=== PATIENT | female | born 1960 | race American Indian/Alaskan Native ===

== ENCOUNTER 2017-07-18 23:45 | Inpatient (IN) | payer MEDICARE, OTHER ==
[~2017-07-18 23:45] MED LIST: HEPARIN/ 0.45% NACL-25,000 UNIT/500 ML 25,000 UNIT/500 ML BAG IV SCH
[2017-07-18] MEDS ORDERED: PLAVIX PO ONE (23:49)
[2017-07-18] MEDS ORDERED: NACL 0.9% 1000 ML 1,000 ML IV ONE (23:49)
[2017-07-18] MEDS ORDERED: ZOFRAN IV ONE (23:49)
[2017-07-18] MEDS ORDERED: HEPARIN IV ONE (23:49)
[2017-07-18] MEDS ORDERED: INTROPIN DRIP 800 MG/D5W 250 ML 800 MG/250 ML BAG IV ONE (23:50)
--- NOTE | 2017-07-18 23:52 | Emergency Department Report ---
ED Chest Pain HPI - General Stated Complaint: POSS STEMI Source: patient, EMS, old records reviewed (no previous medical record) Limitations: Altered Mental Status - History of Present Illness Initial Comments: 57-year-old female with a past medical history hypertension, breast cancer, and elevated cholesterol presents to the hospital with chest pain that started 20 minutes prior to arrival. EMS transmitted EKG and a field shows ST elevation LA in inferior leads with reciprocal changes laterally the patient also has ST elevation anteriorly as well. Patient is lethargic and able to answer questions intermittently. Was able to tolerate by mouth aspirin in the field. Positive associate shortness of breath reported with no reports of vomiting. - Related Data Allergies Allergy/AdvReac Type Severity Reaction Status Date / Time No Known Allergies Allergy Unverified 07/18/17 23:49 Heart Score - HEART Score History: Highly suspicious EKG: Significant ST-depression Age: 45-65 Risk factors: 1-2 risk factors Troponin: 1-3x normal limit HEART Score: 7 ED Review of Systems ROS: Stated complaint: POSS STEMI Other details as noted in HPI Comment: Unobtainable due to pts medical conditions (Limited due to lethargy. As per HPI) ED Physical Exam - Other Other exam information: General: Positive distress/lethargy Head exam: Atraumatic, normocephalic Eyes exam: Normal appearance ENT: Moist mucous membrane, normal oropharynx Neck exam: Normal inspection, full range of motion Respiratory exam: Clear to auscultation bilateral, no wheezes, rales, crackles Cardiovascular: Bradycardic regular rhythm Abdomen: Soft, nondistended, and nontender, with normal bowel sounds, no rebound, or guarding Extremity: Full range of motion normal inspection no deformity Back: Normal Inspection, full range of motion, no tenderness Neurologic: Patient is drowsy/lethargic but oriented 3 and able to answer questions intermittently and follow commands. Moves all extremities without focality Psychiatric: normal affect, normal mood Skin: Warm, dry, intact ED Course Vital Signs 07/18/17 07/19/17 07/19/17 23:52 02:00 03:00 Temperature 97.7 F 97.5 F L Pulse Rate 45 L 73 Pulse Rate [ 71 From Monitor] Pulse Rate [ 73 Right Radial] Respiratory 15 Rate Respiratory 19 Rate [Chest] Blood Pressure 93/54 114/71 O2 Sat by Pulse 99 Oximetry 07/19/17 07/19/17 07/19/17 05:14 05:18 05:44 Temperature Pulse Rate 73 Pulse Rate [ From Monitor] Pulse Rate [ Right Radial] Respiratory 19 15 Rate Respiratory Rate [Chest] Blood Pressure 114/75 O2 Sat by Pulse Oximetry 07/19/17 07/19/17 07/19/17 08:00 10:00 12:00 Temperature 97.7 F 98.0 F Pulse Rate 64 Pulse Rate [ From Monitor] Pulse Rate [ Right Radial] Respiratory Rate Respiratory Rate [Chest] Blood Pressure O2 Sat by Pulse 100 98 Oximetry 07/19/17 15:53 Temperature 98.3 F Pulse Rate Pulse Rate [ From Monitor] Pulse Rate [ Right Radial] Respiratory Rate Respiratory Rate [Chest] Blood Pressure O2 Sat by Pulse Oximetry - Reevaluation(s) Reevaluation #1: 07/18/17 23:51 Dopamine initiated after patient arrival. Plavix, heparin bolus with drip also ordered - Consultations Consultation #1: 07/18/17 23:30 Case discussed with cross tie turner prior to patient arrival to the ED. Dental Claims Processor activated. EKG transmitted to Dr. Llamas. In route to hospital to catheterize patient KYE score - Kye Score Age > 65: (0) No Aspirin use within the Past 7 Days: (0) No 3 or more CAD Risk Factors: (0) No 2 or more Angina events in past 24 hrs: (0) No Known CAD with more than 50% Stenosis: (0) No Elevated Cardiac Markers: (1) Yes ST Deviation Greater than 0.5mm: (1) Yes KYE Score: 2 ED Medical Decision Making - Lab Data Result diagrams: 07/19/17 00:40 07/19/17 05:02 Lab Results 07/19/17 07/19/17 07/19/17 Range/Units 00:40 00:40 00:40 WBC 30.2 H (4.5-11.0) K/mm3 RBC 5.27 H (3.65-5.03) M/mm3 Hgb 11.3 (10.1-14.3) gm/dl Hct 36.1 (30.3-42.9) % MCV 69 L (79-97) fl MCH 22 L (28-32) pg MCHC 31 (30-34) % RDW 16.2 H (13.2-15.2) % Plt Count 254 (140-440) K/mm3 Lymph # Pocket Maker Add Manual Diff Complete Total Counted 200 Seg Neuts % (Manual) 85.5 H (40.0-70.0) % Band Neutrophils % 1.0 % Lymphocytes % (Manual) 9.0 L (13.4-35.0) % Reactive Lymphs % (Man) 0.5 % Monocytes % (Manual) 1.0 (0.0-7.3) % Eosinophils % (Manual) 2.5 (0.0-4.3) % Basophils % (Manual) 0.5 (0.0-1.8) % Metamyelocytes % 0 % Myelocytes % 0 % Promyelocytes % 0 % Blast Cells % 0 % Nucleated RBC % Not Reportable Seg Neutrophils # Man 25.8 H (1.8-7.7) K/mm3 Band Neutrophils # 0.3 K/mm3 Lymphocytes # (Manual) 2.7 (1.2-5.4) K/mm3 Abs React Lymphs (Man) 0.2 K/mm3 Monocytes # (Manual) 0.3 (0.0-0.8) K/mm3 Eosinophils # (Manual) 0.8 H (0.0-0.4) K/mm3 Basophils # (Manual) 0.2 H (0.0-0.1) K/mm3 Metamyelocytes # 0.0 K/mm3 Myelocytes # 0.0 K/mm3 Promyelocytes # 0.0 K/mm3 Blast Cells # 0.0 K/mm3 WBC Morphology Not Reportable Hypersegmented Neuts Not Reportable Hyposegmented Neuts Not Reportable Hypogranular Neuts Not Reportable Smudge Cells Not Reportable Toxic Granulation Not Reportable Toxic Vacuolation Not Reportable Dohle Bodies Not Reportable Pelger-Huet Anomaly Not Reportable Addi Rods Not Reportable Platelet Estimate Appears normal Clumped Platelets Not Reportable Plt Clumps, EDTA Not Reportable Large Platelets Not Reportable Giant Platelets Not Reportable Platelet Satelliting Not Reportable Plt Morphology Comment Not Reportable RBC Morphology Not Reportable Dimorphic RBCs Not Reportable Polychromasia Not Reportable Hypochromasia Not Reportable Poikilocytosis Not Reportable Anisocytosis Not Reportable Microcytosis Not Reportable Macrocytosis Not Reportable Spherocytes Not Reportable Pappenheimer Bodies Not Reportable Sickle Cells Not Reportable Target Cells Not Reportable Tear Drop Cells Not Reportable Ovalocytes Not Reportable Helmet Cells Not Reportable Hutchinson-Dupont Bodies Not Reportable [place] Rings Not Reportable [place] Cells 2+ Bite Cells Not Reportable Crenated Cell Not Reportable Elliptocytes Few Acanthocytes (Spur) Not Reportable Rouleaux Not Reportable Hemoglobin C Crystals Not Reportable Schistocytes Not Reportable Malaria parasites Not Reportable Deo Bodies Not Reportable Hem Pathologist Commnt No PT 17.3 H (12.2-14.9) Sec. INR 1.34 H (0.87-1.13) APTT > 240.0 H* (24.2-36.6) Sec. Sodium (137-145) mmol/L Potassium (3.6-5.0) mmol/L Chloride (98-107) mmol/L Carbon Dioxide (22-30) mmol/L Anion Gap mmol/L BUN (7-17) mg/dL Creatinine (0.7-1.2) mg/dL Estimated GFR ml/min BUN/Creatinine Ratio % Glucose (65-100) mg/dL POC Glucose (70-105) Calcium (8.4-10.2) mg/dL Total Creatine Kinase 133 (30-135) units/L CK-MB (CK-2) 9.5 H (0.0-4.0) ng/mL CK-MB (CK-2) Rel Index 7.1 H (0-4) Troponin T 0.045 H (0.00-0.029) ng/mL Triglycerides 125 (2-149) mg/dL Cholesterol 235 H (50-199) mg/dL LDL Cholesterol Direct 176 H (50-130) mg/dL HDL Cholesterol 34 L (40-59) mg/dL Cholesterol/HDL Ratio 6.91 % Blood Type Antibody Screen 07/19/17 07/19/17 07/19/17 Range/Units 00:40 02:45 04:57 WBC (4.5-11.0) K/mm3 RBC (3.65-5.03) M/mm3 Hgb (10.1-14.3) gm/dl Hct (30.3-42.9) % MCV (79-97) fl MCH (28-32) pg MCHC (30-34) % RDW (13.2-15.2) % Plt Count (140-440) K/mm3 Lymph # Add Manual Diff Total Counted Seg Neuts % (Manual) (40.0-70.0) % Band Neutrophils % % Lymphocytes % (Manual) (13.4-35.0) % Reactive Lymphs % (Man) % Monocytes % (Manual) (0.0-7.3) % Eosinophils % (Manual) (0.0-4.3) % Basophils % (Manual) (0.0-1.8) % Metamyelocytes % % Myelocytes % % Promyelocytes % % Blast Cells % % Nucleated RBC % Seg Neutrophils # Man (1.8-7.7) K/mm3 Band Neutrophils # K/mm3 Lymphocytes # (Manual) (1.2-5.4) K/mm3 Abs React Lymphs (Man) K/mm3 Monocytes # (Manual) (0.0-0.8) K/mm3 Eosinophils # (Manual) (0.0-0.4) K/mm3 Basophils # (Manual) (0.0-0.1) K/mm3 Metamyelocytes # K/mm3 Myelocytes # K/mm3 Promyelocytes # K/mm3 Blast Cells # K/mm3 WBC Morphology Hypersegmented Neuts Hyposegmented Neuts Hypogranular Neuts Smudge Cells Toxic Granulation Toxic Vacuolation Dohle Bodies Pelger-Huet Anomaly Addi Rods Platelet Estimate Clumped Platelets Plt Clumps, EDTA Large Platelets Giant Platelets Platelet Satelliting Plt Morphology Comment RBC Morphology Dimorphic RBCs Polychromasia Hypochromasia Poikilocytosis Anisocytosis Microcytosis Macrocytosis Spherocytes Pappenheimer Bodies Sickle Cells Target Cells Tear Drop Cells Ovalocytes Helmet Cells Hutchinson-Dupont Bodies [place] Rings [place] Cells Bite Cells Crenated Cell Elliptocytes Acanthocytes (Spur) Rouleaux Hemoglobin C Crystals Schistocytes Malaria parasites Deo Bodies Hem Pathologist Commnt PT (12.2-14.9) Sec. INR (0.87-1.13) APTT (24.2-36.6) Sec. Sodium (137-145) mmol/L Potassium (3.6-5.0) mmol/L Chloride (98-107) mmol/L Carbon Dioxide (22-30) mmol/L Anion Gap mmol/L BUN (7-17) mg/dL Creatinine (0.7-1.2) mg/dL Estimated GFR ml/min BUN/Creatinine Ratio % Glucose (65-100) mg/dL POC Glucose 115 H (70-105) Calcium (8.4-10.2) mg/dL Total Creatine Kinase 741 H (30-135) units/L CK-MB (CK-2) 73.0 H (0.0-4.0) ng/mL CK-MB (CK-2) Rel Index 9.8 H (0-4) Troponin T 0.854 H* D (0.00-0.029) ng/mL Triglycerides (2-149) mg/dL Cholesterol (50-199) mg/dL LDL Cholesterol Direct (50-130) mg/dL HDL Cholesterol (40-59) mg/dL Cholesterol/HDL Ratio % Blood Type O POSITIVE Antibody Screen Negative 07/19/17 Range/Units 05:02 WBC (4.5-11.0) K/mm3 RBC (3.65-5.03) M/mm3 Hgb (10.1-14.3) gm/dl Hct (30.3-42.9) % MCV (79-97) fl MCH (28-32) pg MCHC (30-34) % RDW (13.2-15.2) % Plt Count (140-440) K/mm3 Lymph # Add Manual Diff Total Counted Seg Neuts % (Manual) (40.0-70.0) % Band Neutrophils % % Lymphocytes % (Manual) (13.4-35.0) % Reactive Lymphs % (Man) % Monocytes % (Manual) (0.0-7.3) % Eosinophils % (Manual) (0.0-4.3) % Basophils % (Manual) (0.0-1.8) % Metamyelocytes % % Myelocytes % % Promyelocytes % % Blast Cells % % Nucleated RBC % Seg Neutrophils # Man (1.8-7.7) K/mm3 Band Neutrophils # K/mm3 Lymphocytes # (Manual) (1.2-5.4) K/mm3 Abs React Lymphs (Man) K/mm3 Monocytes # (Manual) (0.0-0.8) K/mm3 Eosinophils # (Manual) (0.0-0.4) K/mm3 Basophils # (Manual) (0.0-0.1) K/mm3 Metamyelocytes # K/mm3 Myelocytes # K/mm3 Promyelocytes # K/mm3 Blast Cells # K/mm3 WBC Morphology Hypersegmented Neuts Hyposegmented Neuts Hypogranular Neuts Smudge Cells Toxic Granulation Toxic Vacuolation Dohle Bodies Pelger-Huet Anomaly Addi Rods Platelet Estimate Clumped Platelets Plt Clumps, EDTA Large Platelets Giant Platelets Platelet Satelliting Plt Morphology Comment RBC Morphology Dimorphic RBCs Polychromasia Hypochromasia Poikilocytosis Anisocytosis Microcytosis Macrocytosis Spherocytes Pappenheimer Bodies Sickle Cells Target Cells Tear Drop Cells Ovalocytes Helmet Cells Hutchinson-Dupont Bodies [place] Rings [place] Cells Bite Cells Crenated Cell Elliptocytes Acanthocytes (Spur) Rouleaux Hemoglobin C Crystals Schistocytes Malaria parasites Deo Bodies Hem Pathologist Commnt PT (12.2-14.9) Sec. INR (0.87-1.13) APTT (24.2-36.6) Sec. Sodium 143 (137-145) mmol/L Potassium 3.6 (3.6-5.0) mmol/L Chloride 104.5 (98-107) mmol/L Carbon Dioxide 19 L (22-30) mmol/L Anion Gap 23 mmol/L BUN 14 (7-17) mg/dL Creatinine 0.8 (0.7-1.2) mg/dL Estimated GFR > 60 ml/min BUN/Creatinine Ratio 18 % Glucose 97 (65-100) mg/dL POC Glucose (70-105) Calcium 8.9 (8.4-10.2) mg/dL Total Creatine Kinase (30-135) units/L CK-MB (CK-2) (0.0-4.0) ng/mL CK-MB (CK-2) Rel Index (0-4) Troponin T (0.00-0.029) ng/mL Triglycerides (2-149) mg/dL Cholesterol (50-199) mg/dL LDL Cholesterol Direct (50-130) mg/dL HDL Cholesterol (40-59) mg/dL Cholesterol/HDL Ratio % Blood Type Antibody Screen - EKG Data -: EKG Interpreted by Me EKG shows normal: sinus rhythm, axis (94), QRS complexes (102), ST-T waves (ST elevation inferior and anterior leads) - EKG Data When compared to previous EKG there are: previous EKG unavailable - Medical Decision Making EKG serum prior to arrival and upon arrival shows extensive anterior inferior infarct. Cardiology has been notified and calcified activated. - Differential Diagnosis LA, unstable angina, PE, atypical chest pain, dissection. Critical Care Time: No Critical care attestation.: If time is entered above; I have spent that time in minutes in the direct care of this critically ill patient, excluding procedure time. 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
[2017-07-18] MEDS ORDERED: HEPARIN/NS 5000 UNIT/500ML(CATH LAB) 1,500 ML IR ONE (23:54)
[2017-07-18] MEDS ORDERED: NACL 0.9% 1000 ML 1,000 ML ONE (23:55)
[2017-07-18] MEDS ORDERED: ATROPINE 0.1% (CARDIAC) ONE (23:55)
[2017-07-18] MEDS ORDERED: XYLOCAINE 2% INFILTRATI ONE (23:55)
[2017-07-18] MEDS ORDERED: HEPARIN 10,000 UNITS/10 ML ONE (23:55)
[2017-07-19] MEDS ORDERED: NACL 0.9% 500 ML 0 ML ONE (00:08)
[2017-07-19] MEDS ORDERED: SUBLIMAZE ONE (00:08)
[2017-07-19] MEDS ORDERED: VERSED ONE (00:08)
[2017-07-19] MEDS ORDERED: XYLOCAINE 2% INFILTRATI ONE (00:17)
[2017-07-19] MEDS ORDERED: ZOFRAN ONE ×2 (00:23→01:00)
[2017-07-19] MEDS ORDERED: AGGRASTAT DRIP (12.5 MG/250 ML) 12,500 MCG/250 ML BAG IV ONE (00:31)
[2017-07-19 00:59] LABS: Hematocrit 36.1 % (30.3-42.9); Hemoglobin 11.3 gm/dl (10.1-14.3); Mean Corpuscular HGB Conc 31 % (30-34); Platelet Count 254 K/mm3 (140-440); Red Blood Count 5.27 M/mm3 (3.65-5.03); Red Cell Distribution Width 16.2 % (13.2-15.2)
[2017-07-19 01:00] LABS: Mean Corpuscular Hemoglobin 22 pg (28-32); Mean Corpuscular Volume 69 fl (79-97)
[2017-07-19] MEDS ORDERED: HEPARIN 10,000 UNITS/10 ML IV ONE (01:00)
[2017-07-19] MEDS ORDERED: HEPARIN 10,000 UNITS/10 ML ONE (01:00)
[2017-07-19] MEDS ORDERED: LEVOPHED DRIP 4 MG/NS 250 ML 4 MG/250 ML BAG IV ONE (01:00)
[2017-07-19] MEDS ORDERED: ASPIRIN ONE (01:06)
[2017-07-19] MEDS ORDERED: PLAVIX ONE (01:06)
[2017-07-19] MEDS ORDERED: ALUM-MAG HYDROX-SIMETH 200-200-20MG/5ML ONE (01:06)
[2017-07-19 01:12] LABS: INR 1.34 (0.87-1.13)
[2017-07-19 01:21] LABS: Creatine Kinase MB 9.5 ng/mL (0.0-4.0)
--- NOTE | 2017-07-19 01:23 | History and Physical Report ---
CHIEF COMPLAINT: Chest pain. HISTORY OF PRESENT ILLNESS: The patient is a pleasant 57-year-old female with complaining of chest pain 04/29. She phoned EMS, brought her to the Emergency Room hypotensive, bradycardic, heart rate of 30. She appears ashen, unable to give a complete history due to significant distress. Unable to obtain social history, family history, medication history; she does not remember. She only remembers that she has high blood pressure. Does not remember primary care physician. ALLERGIES: No known drug, food, or environmental allergies. PHYSICAL EXAMINATION: VITAL SIGNS: Blood pressure in EMS is 60/40. Upon arrival to the hospital, it is 85/70. Heart rate is 30, complete heart block. HEENT: Sclerae are anicteric. PERRLA. NECK: Supple. No mass or JVD. CHEST: Clear to auscultation bilaterally. CARDIOVASCULAR: Chase S1, S2. ABDOMEN: Soft, nontender, nondistended. Normoactive bowel sounds in 4 quadrants. EXTREMITIES: No cyanosis, clubbing, edema. Good peripheral pulses. SKIN: Warm, dry and intact. No rashes. DATA: EKG reveals complete heart block, heart rate of 30. Inferior ST elevation. ASSESSMENT: In summary, the patient is a 57-year-old female: Inferior ST elevation myocardial infarction complicated by hypotension, likely RV infarct and complete heart block with a heart rate of 30. STEMI protocol initiated, IV heparin, fluids and aspirin given. Further plans contingent on catheterization results. JOB# [id number] SBM/NTS
[2017-07-19 01:30] LABS: Partial Thromboplastin Time > 240.0 Sec. (24.2-36.6)
[2017-07-19 01:37] LABS: Band Neutrophils # (Manual) 0.3 K/mm3; Basophils % (Manual) 0.5 % (0.0-1.8); Eosinophils % (Manual) 2.5 % (0.0-4.3); Total Cells Counted 200
[2017-07-19 01:38] LABS: Burr Cells 2+
[2017-07-19] MEDS ORDERED: NACL 0.9% 1000 ML 1,000 ML IV SCH (02:00)
[2017-07-19 02:19] LABS: Chol/HDL Ratio 6.91 %
[2017-07-19] MEDS ORDERED: ATROPINE 0.1% (CARDIAC) ONE (03:44)
[2017-07-19] MEDS ORDERED: MORPHINE IV PRN (04:46)
[2017-07-19] MEDS ORDERED: NITROSTAT SL PRN (04:48)
[2017-07-19] MEDS: ZOFRAN IV PRN (05:18)
[2017-07-19 06:12] LABS: BUN/Creatinine Ratio 18; Blood Urea Nitrogen 14 mg/dL (7-17); Calcium 8.9 mg/dL (8.4-10.2); Hemolysis Index 6
[2017-07-19] MEDS: ECOTRIN PO SCH (10:49)
--- NOTE | 2017-07-19 16:01 | Progress Note ---
Assessment and Plan This 57-year-old female came to the emergency room with severe anterior chest discomfort. Patient is known to have a hypertension and hyperlipidemia. Patient was diagnosed to have acute extensive inferior myocardial infarction. Patient had acute intervention and had a PTCA. A temporary pacemaker was also inserted during the night. This morning she feels much bettersignificant chest pain difficulty breathing or palpitations. Occasional pleuritic chest discomfort is noted. Her temporary pacemaker wire is removed currently she is in sinus rhythm today's EKG shows significant improvement. Increase her oral intake as well as activities gradually monitor, monitor and follow closely. Overall patient seems to have responded to treatment so far quite well. - Patient Problems (1) STEMI (ST elevation myocardial infarction) Current Visit: Yes Status: Acute (2) Hypertension Current Visit: Yes Status: Acute (3) Hyperlipidemia Current Visit: Yes Status: Acute Subjective Date of service: 07/19/17 Interval history: Patient was admitted during the night with acute inferior MO and had PTCA done. Patient is doing well this morning she is also has some pleuritic chest discomfort but no significant pain to suggest angina. Objective Vital Signs Temp Pulse Pulse Pulse Resp Resp BP 07/19/17 15:53 98.3 F 07/19/17 12:00 98.0 F 07/19/17 10:00 64 07/19/17 08:00 97.7 F 07/19/17 05:44 15 07/19/17 05:18 73 114/75 07/19/17 05:14 19 07/19/17 03:00 97.5 F L 07/19/17 02:00 97.7 F 73 71 73 15 19 114/71 07/18/17 23:52 45 L 93/54 Pulse Ox 07/19/17 15:53 07/19/17 12:00 98 07/19/17 10:00 07/19/17 08:00 100 07/19/17 05:44 07/19/17 05:18 07/19/17 05:14 07/19/17 03:00 07/19/17 02:00 99 07/18/17 23:52 - Physical Examination General: Appears Well HEENT: Positive: PERRL Neck: Positive: neck supple Cardiac: Positive: Reg Rate and Rhythm Lungs: Positive: clear to auscultation Abdomen: Positive: Soft Skin: Positive: Clear Extremities: Present: normal - Labs and Meds Cardiac Enzymes 07/19/17 07/19/17 Range/Units 00:40 04:57 CK-MB (CK-2) 9.5 H 73.0 H (0.0-4.0) ng/mL Coagulation 07/19/17 Range/Units 00:40 PT 17.3 H (12.2-14.9) Sec. INR 1.34 H (0.87-1.13) APTT > 240.0 H* (24.2-36.6) Sec. Lipids 07/19/17 Range/Units 00:40 Triglycerides 125 (2-149) mg/dL Cholesterol 235 H (50-199) mg/dL HDL Cholesterol 34 L (40-59) mg/dL Cholesterol/HDL Ratio 6.91 % CBC 07/19/17 Range/Units 00:40 WBC 30.2 H (4.5-11.0) K/mm3 RBC 5.27 H (3.65-5.03) M/mm3 Hgb 11.3 (10.1-14.3) gm/dl Hct 36.1 (30.3-42.9) % Plt Count 254 (140-440) K/mm3 Lymph # Seed Cleaning Manager Comprehensive Metabolic Panel 07/19/17 Range/Units 05:02 Sodium 143 (137-145) mmol/L Potassium 3.6 (3.6-5.0) mmol/L Chloride 104.5 (98-107) mmol/L Carbon Dioxide 19 L (22-30) mmol/L BUN 14 (7-17) mg/dL Creatinine 0.8 (0.7-1.2) mg/dL Glucose 97 (65-100) mg/dL Calcium 8.9 (8.4-10.2) mg/dL
[2017-07-20 05:53] LABS: Hematocrit 35.4 % (30.3-42.9); Hemoglobin 11.4 gm/dl (10.1-14.3); Mean Corpuscular HGB Conc 32 % (30-34); Platelet Count 237 K/mm3 (140-440); Red Blood Count 5.17 M/mm3 (3.65-5.03); Red Cell Distribution Width 16.1 % (13.2-15.2)
[2017-07-20 06:08] LABS: BUN/Creatinine Ratio 11; Blood Urea Nitrogen 9 mg/dL (7-17); Calcium 8.7 mg/dL (8.4-10.2); Hemolysis Index 1
[2017-07-20 06:14] LABS: Mean Corpuscular Hemoglobin 22 pg (28-32); Mean Corpuscular Volume 69 fl (79-97)
[2017-07-20 07:13] LABS: Anisocytosis 1+; Band Neutrophils # (Manual) 0.8 K/mm3; Basophils % (Manual) 0 % (0.0-1.8); Burr Cells 1+; Hypochromasia 1+; Total Cells Counted 100
[2017-07-20 07:14] LABS: Ovalocytes Few
[2017-07-20] MEDS: PLAVIX PO SCH (09:25)
[2017-07-20] MEDS: ECOTRIN PO SCH (09:25)
--- NOTE | 2017-07-20 09:38 | XRay Report ---
Single view chest: History: Post PCI. Findings: Normal cardiomediastinal silhouette. Trachea is midline. No consolidation, pneumothorax or pleural effusion. Impression: No acute cardiopulmonary findings
--- NOTE | 2017-07-20 10:18 | Progress Note ---
Assessment and Plan This 57-year-old female came to the emergency room with severe anterior chest discomfort. Patient is known to have a hypertension and hyperlipidemia. Patient was diagnosed to have acute extensive inferior myocardial infarction. Patient had acute intervention and had a PTCA. A temporary pacemaker was also inserted. Pacemaker was removed yesterday. This morning she feels much better . Cardiac examination is stable rhythm is stable. Plan is to transfer to telemetry - Patient Problems (1) STEMI (ST elevation myocardial infarction) Current Visit: Yes Status: Acute (2) Hypertension Current Visit: Yes Status: Acute (3) Hyperlipidemia Current Visit: Yes Status: Acute Subjective Date of service: 07/20/17 Interval history: Patient was admitted with acute inferior [place] and had PTCA done. Patient is doing well this morning Objective Vital Signs Temp Pulse Pulse Resp BP Pulse Ox 07/20/17 09:51 63 21 110/69 95 07/20/17 09:41 67 22 110/69 94 07/20/17 09:31 74 21 110/69 95 07/20/17 09:20 84 21 110/69 96 07/20/17 09:11 122 H 27 H 127/88 07/20/17 09:01 78 14 127/88 07/20/17 08:51 120 H 21 127/88 07/20/17 08:41 98 H 21 127/88 95 07/20/17 08:31 64 18 107/68 96 07/20/17 08:21 62 14 107/68 96 07/20/17 08:17 98.5 F 69 21 127/88 97 07/20/17 08:11 65 18 107/68 95 07/20/17 08:03 64 18 95 07/20/17 07:50 81 18 107/68 97 07/20/17 07:40 61 20 107/68 95 07/20/17 07:30 76 15 116/65 98 07/20/17 07:23 61 21 116/65 97 07/20/17 07:00 59 L 20 116/65 97 07/20/17 05:33 75 07/20/17 04:00 98.7 F 07/20/17 02:52 98.2 F 60 18 114/70 07/20/17 00:00 98.2 F 07/19/17 18:00 74 18 115/67 100 07/19/17 17:00 80 20 106/67 98 07/19/17 16:00 66 19 124/58 98 07/19/17 15:53 98.3 F 07/19/17 15:00 93 H 18 115/50 96 07/19/17 14:00 70 17 106/55 96 07/19/17 13:00 82 19 104/62 96 07/19/17 12:00 98.0 F 66 14 114/74 98 07/19/17 11:00 82 17 108/60 98 - Physical Examination General: Appears Well HEENT: Positive: PERRL Neck: Positive: neck supple Cardiac: Positive: Reg Rate and Rhythm Lungs: Positive: clear to auscultation Abdomen: Positive: Soft Skin: Positive: Clear Extremities: Present: normal - Labs and Meds Cardiac Enzymes 07/20/17 Range/Units 05:37 CK-MB (CK-2) 25.0 H (0.0-4.0) ng/mL CBC 07/20/17 Range/Units 05:37 WBC 15.0 H (4.5-11.0) K/mm3 RBC 5.17 H (3.65-5.03) M/mm3 Hgb 11.4 (10.1-14.3) gm/dl Hct 35.4 (30.3-42.9) % Plt Count 237 (140-440) K/mm3 Lymph # Clay Artist Comprehensive Metabolic Panel 07/20/17 Range/Units 05:37 Sodium 139 (137-145) mmol/L Potassium 3.1 L (3.6-5.0) mmol/L Chloride 102.8 (98-107) mmol/L Carbon Dioxide 23 (22-30) mmol/L BUN 9 (7-17) mg/dL Creatinine 0.8 (0.7-1.2) mg/dL Glucose 106 H (65-100) mg/dL Calcium 8.7 (8.4-10.2) mg/dL
[2017-07-20] MEDS ORDERED: NS/KCL 20MEQ 20 MEQ/1,000 ML BAG IV SCH (11:00)
[2017-07-20] MEDS: K-DUR PO SCH ×2 (12:36→22:59)
--- NOTE | 2017-07-20 14:42 | Consultation ---
History of Present Illness Consult date: 07/20/17 Requesting physician: ARUN BERNAL Reason for consult: other (STEMI) History of present illness: PULMONARY/CCM CONSULT NOTE (Full dictation # [id number]) Please see dictated notes for full details Medications and Allergies Allergies Allergy/AdvReac Type Severity Reaction Status Date / Time No Known Allergies Allergy Unverified 07/18/17 23:49 Active Meds: Active Medications Aspirin (Ecotrin) 325 mg PO QDAY DANNY Last Admin: 07/20/17 09:25 Dose: 325 mg Atorvastatin Calcium (Lipitor) 80 mg PO QHS DANNY Last Admin: 07/19/17 22:29 Dose: 80 mg Clopidogrel Bisulfate (Plavix) 75 mg PO QDAY DANNY Last Admin: 07/20/17 09:25 Dose: 75 mg Sodium Chloride (Nacl 0.9% 1000 Ml) 1,000 mls @ 125 mls/hr IV DIRECT DANNY Last Infusion: 07/19/17 13:48 Dose: Infused Potassium Chloride/Sodium Chloride (Ns/Kcl 20meq) 20 meq in 1,000 mls @ 42 mls/ hr IV DIRECT DANNY Morphine Sulfate (Morphine) 2 mg IV Q4H PRN PRN Reason: Pain, Moderate (4-6) Last Admin: 07/19/17 05:14 Dose: 2 mg Nitroglycerin (Nitrostat) 0.4 mg SL .Q5MIN PRN PRN Reason: Chest Pain Last Admin: 07/19/17 05:18 Dose: 0.4 mg Ondansetron HCl (Zofran) 4 mg IV Q4H PRN PRN Reason: Nausea And Vomiting Last Admin: 07/19/17 05:18 Dose: 4 mg Potassium Chloride (K-Dur) 20 meq PO BID DANNY Physical Examination Vital signs: Vital Signs Pulse BP 45 L 93/54 07/18/17 23:52 07/18/17 23:52 Results - Laboratory Findings CBC and BMP: 07/20/17 05:37 07/20/17 05:37 PT/INR, D-dimer PT 17.3 Sec. (12.2-14.9) H 07/19/17 00:40 INR 1.34 (0.87-1.13) H 07/19/17 00:40 Abnormal lab findings: Abnormal Labs 07/19/17 07/19/17 07/19/17 00:40 00:40 00:40 WBC 30.2 H RBC 5.27 H MCV 69 L MCH 22 L RDW 16.2 H Seg Neuts % (Manual) 85.5 H Lymphocytes % (Manual) 9.0 L Eosinophils % (Manual) Seg Neutrophils # Man 25.8 H Monocytes # (Manual) Eosinophils # (Manual) 0.8 H Basophils # (Manual) 0.2 H PT 17.3 H INR 1.34 H APTT > 240.0 H* Potassium Carbon Dioxide Glucose POC Glucose Total Creatine Kinase CK-MB (CK-2) 9.5 H CK-MB (CK-2) Rel Index 7.1 H Troponin T 0.045 H Cholesterol 235 H LDL Cholesterol Direct 176 H HDL Cholesterol 34 L 07/19/17 07/19/17 07/19/17 02:45 04:57 05:02 WBC RBC MCV MCH RDW Seg Neuts % (Manual) Lymphocytes % (Manual) Eosinophils % (Manual) Seg Neutrophils # Man Monocytes # (Manual) Eosinophils # (Manual) Basophils # (Manual) PT INR APTT Potassium Carbon Dioxide 19 L Glucose POC Glucose 115 H Total Creatine Kinase 741 H CK-MB (CK-2) 73.0 H CK-MB (CK-2) Rel Index 9.8 H Troponin T 0.854 H* D Cholesterol LDL Cholesterol Direct HDL Cholesterol 07/20/17 07/20/17 07/20/17 05:37 05:37 05:37 WBC 15.0 H RBC 5.17 H MCV 69 L MCH 22 L RDW 16.1 H Seg Neuts % (Manual) Lymphocytes % (Manual) Eosinophils % (Manual) 9.0 H Seg Neutrophils # Man 8.0 H Monocytes # (Manual) 1.1 H Eosinophils # (Manual) 1.4 H Basophils # (Manual) PT INR APTT Potassium 3.1 L Carbon Dioxide Glucose 106 H POC Glucose Total Creatine Kinase 844 H CK-MB (CK-2) 25.0 H CK-MB (CK-2) Rel Index Troponin T 0.755 H* Cholesterol LDL Cholesterol Direct HDL Cholesterol
--- NOTE | 2017-07-20 15:32 | XRay Report ---
FINAL REPORT EXAM: XR CHEST 1V AP HISTORY: ? surgical clips in lower lung jimenez; S/P STEMI TECHNIQUE: Frontal chest x-ray Comparison: None FINDINGS: AP portable semi erect chest x-ray demonstrates normal heart size. There are surgical clips in the bilateral lower shel[place] thoraces, projecting over the lungs. No lateral film was obtained to assess the location. These clips project toward the mediastinum and elisha on the frontal view. Lungs are mildly hyperlucent. There are no focal infiltrates. The bones are osteopenic. IMPRESSION: Single view. Surgical clips project over the lower bilateral hemithoraces extending toward the in mediastinum and bilateral elisha. Mildly hyperlucent lungs suggesting underlying emphysema. No acute infiltrates or evidence for heart failure.
[2017-07-20] MEDS: LOVENOX SUB-Q SCH (22:59)
[2017-07-21] MEDS: ECOTRIN PO SCH (09:41)
[2017-07-21] MEDS: PEPCID PO SCH (09:41)
[2017-07-21] MEDS: PLAVIX PO SCH (09:42)
[2017-07-21] MEDS: K-DUR PO SCH ×2 (09:42→21:42)
--- NOTE | 2017-07-21 10:15 | Cardiac Catherization Report ---
REFERRING PHYSICIAN: ER physician. INDICATION FOR PROCEDURE: The patient is a pleasant 57-year-old -[place] female who presents with 1-hour of chest pain, hypotensive, bradycardic inferior ST elevation, STEMI protocol initiated. She is ashen, disoriented, having 10/10 chest pain. Blood pressure in the EMS was 60/40, heart rate of 30, and the patient was started on dopamine in the Emergency Room, blood pressure is somewhat improved. STEMI protocol initiated. The patient was given IV heparin, aspirin, and open IV fluids. PROCEDURE IN DETAIL: The patient was brought to the laborer concrete paving in urgent fashion, prepped and draped in sterile fashion, 8 mL of 2% lidocaine was used to anesthetize both groins. 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 We obtained arterial access in the left groin and venous access in the right groin via modified Seldinger technique. A balloon-tipped temporary venous pacemaker was placed under fluoroscopic guidance and tested and functioning appropriately. Next, JL4 catheter was used to engage the left main. No dampening or ventricularization. Cineangiography performed in all projections. Next, JR4 guide was used to engage the right coronary angiography performed. DATA: Aortic pressure was 110/70. She remained bradycardic, complete heart block, backup heart rate of 50 via pacemaker. She was started on high-dose dopamine. CORONARY ANATOMY: This is a strongly right dominant system. Left main without significant disease, bifurcates left anterior descending and left circumflex. Left circumflex is a moderate-sized vessel, courses AV groove, it is diffusely diseased, smooth 80% stenosis in the mid segment, smooth 80% stenosis distally, but severe small vessel disease distally. The LAD has a long 60-70% stenosis in the proximal and mid segment smooth KYE-3 flow throughout the left system. Right coronary is flush occluded in the proximal segment. At this point, we turned our attention to PCI. Abnormal ACT is confirmed. We used a Cisco wire to cross the lesion without difficulty. KYE-3 flow returned. A 2.5 x 12 balloon was used to predilate the lesion, it is a long complex lesion. We used 2.75 x 26 Integrity bare metal stent overlapping with a 2.75 x 14 Integrity bare metal stent, we postdilated the overlap at 2.75. Excellent final angiographic result. Intravascular ultrasound was performed, which revealed a well-opposed well-expanded stent. Final angiogram reveals KYE-3 flow. Left ventriculography was then performed, which reveals inferoapical dyskinesis, but preserved ejection fraction of 50 -55%. CONCLUSIONS: 1. Acute atherothrombotic occlusion of the proximal right coronary in the setting of an inferior myocardial infarction complicated by RV infarction and hypotension with complete heart block. 2. Successful IVUS-guided PCI of the proximal and mid RCA with overlapping bare metal stents (Integrity 2.75 x 26, Integrity 2.75 x 14) with excellent final angiographic and endoscopic results. 3. Successful placement of temporary venous pacemaker via the right groin. 4. Tandem smooth 80% stenosis in the mid and distal left circumflex KYE-3 flow. 5. A 60-70% long proximal/mid left anterior descending coronary artery stenosis. 6. Left ventriculography revealed inferoapical dyskinesis with overall preserved ejection fraction of 55-60%. At this point, the patient is clinically stable on very low-dose dopamine at 2.5. She is in sinus rhythm, not needing a pacemaker, chest-pain free, had multiple vagal episodes, but is feeling better now. EKG is essentially normalized. Blood pressure is also normalized. She got one bolus of Aggrastat, we will pull the left groin sheath once ACT less than 170. We will need to workup her right iliac stenosis as an outpatient. Continue Plavix, aspirin, statin therapy, aggressive IV fluids given RV infarction. We will watch her closely. Labs are still pending. We will admit to ICU. Results of the procedure were explained at length to the patient. All questions were addressed. JOB# [id number] ROMULO/DIANA
--- NOTE | 2017-07-21 13:32 | Progress Note ---
Assessment and Plan This 57-year-old female came to the emergency room with severe anterior chest discomfort. Patient is known to have a hypertension and hyperlipidemia. Patient was diagnosed to have acute extensive inferior myocardial infarction. Patient had acute intervention and had a PTCA. A temporary pacemaker was also inserted. Pacemaker was removed. Patient is doing well today. Increase activity. Possible discharge tomorrow. Urinalysis and urine C&S are ordered. Continues to improve. Patient's diagnosis and need for close monitoring and follow-up explained again today. - Patient Problems (1) STEMI (ST elevation myocardial infarction) Current Visit: Yes Status: Acute (2) Hypertension Current Visit: Yes Status: Acute (3) Hyperlipidemia Current Visit: Yes Status: Acute Subjective Date of service: 07/21/17 Interval history: Patient is doing well today. No significant cardiac symptoms. Complaining about some urinary symptoms will obtain urine culture and sensitivity Objective Vital Signs Temp Pulse Resp BP Pulse Ox 07/21/17 11:41 98.5 F 65 16 145/83 99 07/21/17 08:33 98.4 F 68 18 123/68 100 07/21/17 04:14 98.2 F 64 18 105/74 100 07/20/17 23:48 98.4 F 18 112/70 07/20/17 22:00 66 07/20/17 19:30 98.1 F 77 18 109/68 99 07/20/17 17:49 82 119/62 100 - Physical Examination General: Appears Well HEENT: Positive: PERRL Neck: Positive: neck supple Cardiac: Positive: Reg Rate and Rhythm Lungs: Positive: clear to auscultation Neuro: Positive: Grossly Intact Abdomen: Positive: Soft Skin: Positive: Clear Extremities: Present: normal
[2017-07-21 14:26] LABS: BUN/Creatinine Ratio 16; Blood Urea Nitrogen 11 mg/dL (7-17); Hemolysis Index 60
--- NOTE | 2017-07-21 15:01 | Progress Note ---
Assessment and Plan Patient resting on room air. No complaint of chest pain or shortness of breath at this time.O2 saturation 99% on room air. - Patient Problems (1) STEMI (ST elevation myocardial infarction) Current Visit: Yes Status: Acute Plan to address problem: Management as per cardiology. (2) Hyperlipidemia Current Visit: Yes Status: Acute Plan to address problem: Management as per primary care. (3) Hypertension Current Visit: Yes Status: Acute Plan to address problem: Management as per primary care. (4) Tobacco abuse disorder Current Visit: Yes Status: Acute Plan to address problem: Counselled to stop smoking. Recommend PFTs as Out patient. Subjective Date of service: 07/21/17 Interval history: Patient resting on room air. No complaint of chest pain or shortness of breath at this time.O2 saturation 99% on room air. Objective Vital Signs - 12hr 07/21/17 07/21/17 07/21/17 04:14 08:33 11:41 Temperature 98.2 F 98.4 F 98.5 F Pulse Rate 64 68 65 Respiratory 18 18 16 Rate Blood Pressure 105/74 123/68 145/83 O2 Sat by Pulse 100 100 99 Oximetry Constitutional: no acute distress, alert Eyes: non-icteric Neck: supple, no lymphadenopathy Ascultation: Bilateral: diminished breath sounds Cardiovascular: regular rate and rhythm Gastrointestinal: normoactive bowel sounds, soft, non-tender Extremities: no cyanosis, no edema Neurologic: normal mental status, non-focal exam, pupils equal and round, CN II- XII normal Psychiatric: mood appropriate CBC and BMP: 07/20/17 05:37 07/21/17 13:44 ABG, PT/INR, D-dimer: PT/INR, D-dimer PT 17.3 Sec. (12.2-14.9) H 07/19/17 00:40 INR 1.34 (0.87-1.13) H 07/19/17 00:40 Abnormal lab findings: Abnormal Labs 07/19/17 07/19/17 07/19/17 00:40 00:40 00:40 WBC 30.2 H RBC 5.27 H MCV 69 L MCH 22 L RDW 16.2 H Seg Neuts % (Manual) 85.5 H Lymphocytes % (Manual) 9.0 L Eosinophils % (Manual) Seg Neutrophils # Man 25.8 H Monocytes # (Manual) Eosinophils # (Manual) 0.8 H Basophils # (Manual) 0.2 H PT 17.3 H INR 1.34 H APTT > 240.0 H* Potassium Carbon Dioxide Glucose POC Glucose Total Creatine Kinase CK-MB (CK-2) 9.5 H CK-MB (CK-2) Rel Index 7.1 H Troponin T 0.045 H Cholesterol 235 H LDL Cholesterol Direct 176 H HDL Cholesterol 34 L 07/19/17 07/19/17 07/19/17 02:45 04:57 05:02 WBC RBC MCV MCH RDW Seg Neuts % (Manual) Lymphocytes % (Manual) Eosinophils % (Manual) Seg Neutrophils # Man Monocytes # (Manual) Eosinophils # (Manual) Basophils # (Manual) PT INR APTT Potassium Carbon Dioxide 19 L Glucose POC Glucose 115 H Total Creatine Kinase 741 H CK-MB (CK-2) 73.0 H CK-MB (CK-2) Rel Index 9.8 H Troponin T 0.854 H* D Cholesterol LDL Cholesterol Direct HDL Cholesterol 07/20/17 07/20/17 07/20/17 05:37 05:37 05:37 WBC 15.0 H RBC 5.17 H MCV 69 L MCH 22 L RDW 16.1 H Seg Neuts % (Manual) Lymphocytes % (Manual) Eosinophils % (Manual) 9.0 H Seg Neutrophils # Man 8.0 H Monocytes # (Manual) 1.1 H Eosinophils # (Manual) 1.4 H Basophils # (Manual) PT INR APTT Potassium 3.1 L Carbon Dioxide Glucose 106 H POC Glucose Total Creatine Kinase 844 H CK-MB (CK-2) 25.0 H CK-MB (CK-2) Rel Index Troponin T 0.755 H* Cholesterol LDL Cholesterol Direct HDL Cholesterol 07/21/17 13:44 WBC RBC MCV MCH RDW Seg Neuts % (Manual) Lymphocytes % (Manual) Eosinophils % (Manual) Seg Neutrophils # Man Monocytes # (Manual) Eosinophils # (Manual) Basophils # (Manual) PT INR APTT Potassium Carbon Dioxide 20 L Glucose 116 H POC Glucose Total Creatine Kinase CK-MB (CK-2) CK-MB (CK-2) Rel Index Troponin T Cholesterol LDL Cholesterol Direct HDL Cholesterol Chest x-ray: report reviewed (Mild hyperinflatio. No acute pulmonary infiltrates.), image reviewed
--- NOTE | 2017-07-21 15:14 | Consultation ---
PULMONARY CRITICAL CARE EVALUATION CONSULTING PHYSICIAN: Raymond Llamas MD REASON FOR CONSULT: Need for ICU monitoring, post-PTCI for ST elevation ID in the inferior leads. CHIEF COMPLAINT AND HISTORY OF PRESENT ILLNESS: As follows: I should mention this is a late dictation. The patient was seen in the intensive care unit on 07/19/2017. She is a 57-year-old -[place] female with past medical history significant for hyperlipidemia and hypertension, had presented to the hospital 20 minutes after developing anterior chest wall pain. She was unable to give much details in terms of any radiation of the pain. She did have shortness of breath. She denied nausea and vomiting. She denied any palpitations. She denied any prior similar episodes. She was given some aspirin in the field. In the ER, there was confirmation of ST elevation ID. Cardiology was consulted. STEMI protocol was initiated. At the time, I got to see her and she had been having some pleuritic chest pain earlier that got better post-intervention. I believe she had some trouble with bradycardia. She had a temporary pacemaker wire inserted after the procedure, which happened on and by the time I saw her, the pacemaker wire had been removed. She was feeling better. She denied any chest pain. She was talking to me in full sentences. Family and friends were in the room and I should mention she has a 10+ pack year tobacco smoking history, but is very well willing to quit. PAST MEDICAL HISTORY: Hypertension, hyperlipidemia, tobacco use disorder. PAST SURGICAL HISTORY: Unknown. MEDICATIONS: She was on reviewed at the time I stopped by to see her. Pertinent medications included aspirin 325 mg p.o. daily, morphine 2 mg IV q. 4 hours p.r.n. moderate pain, p.r.n. Nitrostat, Zofran 4 mg IV q.4 hours p.r.n. nausea and vomiting. ALLERGIES: No known drug allergies. DIET: Well-built lady, denies acute weight loss or gain preceding few weeks to months. FAMILY AND SOCIAL HISTORY: Lives in the community. She has a 20+ pack year tobacco smoking history. Denies current alcohol or illicit drug use or abuse. REVIEW OF SYSTEMS: No loss of consciousness. No new onset focal weakness. No gross hematochezia or melena. No gross hematuria, no hematemesis. No hemoptysis. No new leg pain or swelling either unilaterally or bilaterally. Complete 13 system review of systems obtained. Pertinent positives and/or negatives as in body of history above. They are otherwise noncontributory. In addition, she denies any arthritis or arthralgias. PHYSICAL EXAMINATION: VITAL SIGNS: At presentation in the Emergency Room, review of the vital signs shows that she was afebrile, temperature 97.7, pulse was 45, respiratory rate was 19, blood pressure 93/54, oxygen sats were 99%, inspired oxygen concentration was not recorded at the time I saw her, she was on 2 liters nasal cannula. GENERAL: She is A well-built -[place] female. Normocephalic, atraumatic, talking to me in full sentences, in mild distress. HEAD, EYES, EARS, NOSE AND THROAT: She is anicteric. No conjunctival erythema. Oropharynx is a Mallampati #3 oropharynx. Grossly, no jugular venous distention, no palpable lymph nodes in the supraclavicular or submandibular lymph node chains. Oropharynx is moist. LUNGS: Auscultation of both lung jimenez are unremarkable. Lungs are clear bilaterally, perhaps slightly diminished, slightly prolonged expiratory phase. No wheezing. HEART: Heart sounds 1 and 2 are heard at the time of my evaluation, regular in rate and rhythm. No rubs, no murmurs. ABDOMEN: Soft, full, bowel sounds are positive, nontender. No palpable hepatosplenomegaly grossly. EXTREMITIES: Without overt digital clubbing, cyanosis, or pedal edema. Dorsalis pedis pulses were palpable bilaterally. NEUROLOGIC: Pupils are equal, round, about 3 mm, reactive to light. Extraocular muscle movements were intact. She moved all 4 extremities spontaneously. Mood was normal. The affect was appropriate. LABORATORY DATA: From my review are as follows: Admission white cell count 30,200, hemoglobin 11.3, hematocrit 36.1, platelet count 254. No significant band forms on the manual differential. INR was 1.34. Serum sodium 143, potassium 3.6, chloride 105, bicarbonate 19, BUN 14, creatinine 0.8 and glucose of 97. Cardiac enzymes were at presentation 0.045 on the troponin. CK-MB was 7.1. CPK was within normal limits. LDL cholesterol was 176. No microbiology studies. A chest x-ray was done. It was read as a normal chest x-ray. I am bothered it appears to be some clicks at the lower mid third of both lung jimenez, which except there is some artifact suggest some possible anterior pulmonary intervention bilaterally. It may well be related to the tie she was wearing at that time she had the study done, but bothersome enough for me to repeat the chest x-ray plus or minus further imaging. ASSESSMENT: 1. Acute ST elevation myocardial infarction. 2. Hypertension. 3. Tobacco use disorder. 4. Hyperlipidemia. 5. Leukocytosis. PLAN: Continue STEMI protocol and medications per Cardiology. She is already off the IV heparin drip at the time I saw her, pulse is better controlled, temporary pacemaker has been removed. Introduction of pertinent disease modifying drugs including antilipid therapy, beta blockers, Plavix will be left to the recreation manager the timing that is. I have strongly counseled tobacco cessation and offered help. She is determined she is going to stop and does not need help at this point in time. As mentioned, I will repeat the chest x-ray plus or minus follow testing. Leukocytosis may be a stress reaction. I will get a CRP level. Lactic acid level to better understand the true infectious potential of the leukocytosis. She will be placed on GI prophylaxis as well as DVT prophylaxis. Flu and pneumonia vaccination will be per protocol. Thank you very much for the consult. We will follow along and make further recommendations as picture progresses/becomes clearer. JOB# [id number] ENOC/DIANA
[2017-07-21 19:49] LABS: Bilirubin,Urine NEG (Negative); Blood,Urine MOD (Negative); Color,Urine Yellow (Yellow); Mucus,Urine FEW /HPF; Nitrite,Urine NEG (Negative); Protein,Urine <15 mg/dL mg/dL (Negative)
[2017-07-21] MEDS: LOVENOX SUB-Q SCH (21:42)
[2017-07-22] MEDS: K-DUR PO SCH ×2 (09:58→21:57)
[2017-07-22] MEDS: ECOTRIN PO SCH (09:59)
[2017-07-22] MEDS: PLAVIX PO SCH (09:59)
[2017-07-22] MEDS: PEPCID PO SCH (09:59)
[2017-07-22] MEDS ORDERED: TYLENOL PO PRN (10:08)
--- NOTE | 2017-07-22 10:26 | Progress Note ---
Assessment and Plan Assessment: STEMI CAD s/p PCI of RCA Hypertension Hyperlipidemia Plan: Add low dose metoprolol. Pt. encouraged to ambulate. Awaiting call back from [facility] regarding approval of staged PCI (pt. was noted to have a 80% circumflex lesion). The patient has been seen in conjunction with Dr. Puga who agrees with the assessment and plan of care. Subjective Date of service: 07/22/17 Principal diagnosis: acute STEMI Interval history: The patient is resting in bed. Reports one episode of back pain last night. No chest pain. Sinus rhythm on the monitor. Objective Last Vital Signs Temp 98.6 F 07/22/17 07:17 Pulse 64 07/22/17 10:00 Resp 20 07/22/17 07:17 BP 117/74 07/22/17 10:32 Pulse Ox 100 07/22/17 07:17 - Physical Examination General: Appears Well HEENT: Positive: PERRL Neck: Positive: neck supple Cardiac: Positive: Reg Rate and Rhythm, S1/S2 Lungs: Positive: clear to auscultation Neuro: Positive: Grossly Intact Abdomen: Positive: Soft Skin: Positive: Clear Incision: Cardiac Cath Site (right femoral cath site-no bleeding or hematoma) Extremities: Present: normal - Labs and Meds Comprehensive Metabolic Panel 07/21/17 Range/Units 13:44 Sodium 143 (137-145) mmol/L Potassium 4.3 D (3.6-5.0) mmol/L Chloride 106.5 (98-107) mmol/L Carbon Dioxide 20 L (22-30) mmol/L BUN 11 (7-17) mg/dL Creatinine 0.7 (0.7-1.2) mg/dL Glucose 116 H (65-100) mg/dL Calcium 9.0 (8.4-10.2) mg/dL - Imaging and Cardiology Echo: report reviewed - Telemetry EKG Rhythm: Sinus Rhythm
[2017-07-22] MEDS: LOPRESSOR PO SCH ×2 (10:32→21:31)
[2017-07-22] MEDS ORDERED: NACL 0.9% 500 ML 500 ML IV SCH (18:00)
--- NOTE | 2017-07-22 19:30 | Progress Note ---
Assessment and Plan Patient resting on 2 litres O2.. No complaint of chest pain or shortness of breath at this time.O2 saturation 100% on 2 litres O2.. - Patient Problems (1) STEMI (ST elevation myocardial infarction) Current Visit: Yes Status: Acute Plan to address problem: Management as per cardiology. (2) Hyperlipidemia Current Visit: Yes Status: Acute Plan to address problem: Management as per primary care. (3) Hypertension Current Visit: Yes Status: Acute Plan to address problem: Management as per primary care. (4) Tobacco abuse disorder Current Visit: Yes Status: Acute Plan to address problem: Counselled to stop smoking. Recommend PFTs as Out patient. Subjective Date of service: 07/22/17 Principal diagnosis: acute STEMI Interval history: Patient resting on 2 litres O2.. No complaint of chest pain or shortness of breath at this time.O2 saturation 100% on 2 litres O2.. Objective Vital Signs - 12hr 07/22/17 07/22/17 10:00 10:32 Pulse Rate 64 Blood Pressure 117/74 Constitutional: no acute distress, alert Eyes: non-icteric Neck: supple, no lymphadenopathy Ascultation: Bilateral: diminished breath sounds Cardiovascular: regular rate and rhythm Gastrointestinal: normoactive bowel sounds, soft, non-tender Extremities: no cyanosis, no edema Neurologic: normal mental status, non-focal exam, pupils equal and round, CN II- XII normal Psychiatric: mood appropriate CBC and BMP: 07/20/17 05:37 07/21/17 13:44 ABG, PT/INR, D-dimer: PT/INR, D-dimer PT 17.3 Sec. (12.2-14.9) H 07/19/17 00:40 INR 1.34 (0.87-1.13) H 07/19/17 00:40 Abnormal lab findings: Abnormal Labs 07/19/17 07/19/17 07/19/17 00:40 00:40 00:40 WBC 30.2 H RBC 5.27 H MCV 69 L MCH 22 L RDW 16.2 H Seg Neuts % (Manual) 85.5 H Lymphocytes % (Manual) 9.0 L Eosinophils % (Manual) Seg Neutrophils # Man 25.8 H Monocytes # (Manual) Eosinophils # (Manual) 0.8 H Basophils # (Manual) 0.2 H PT 17.3 H INR 1.34 H APTT > 240.0 H* Potassium Carbon Dioxide Glucose POC Glucose Total Creatine Kinase CK-MB (CK-2) 9.5 H CK-MB (CK-2) Rel Index 7.1 H Troponin T 0.045 H Cholesterol 235 H LDL Cholesterol Direct 176 H HDL Cholesterol 34 L Urine WBC (Auto) 07/19/17 07/19/17 07/19/17 02:45 04:57 05:02 WBC RBC MCV MCH RDW Seg Neuts % (Manual) Lymphocytes % (Manual) Eosinophils % (Manual) Seg Neutrophils # Man Monocytes # (Manual) Eosinophils # (Manual) Basophils # (Manual) PT INR APTT Potassium Carbon Dioxide 19 L Glucose POC Glucose 115 H Total Creatine Kinase 741 H CK-MB (CK-2) 73.0 H CK-MB (CK-2) Rel Index 9.8 H Troponin T 0.854 H* D Cholesterol LDL Cholesterol Direct HDL Cholesterol Urine WBC (Auto) 07/20/17 07/20/17 07/20/17 05:37 05:37 05:37 WBC 15.0 H RBC 5.17 H MCV 69 L MCH 22 L RDW 16.1 H Seg Neuts % (Manual) Lymphocytes % (Manual) Eosinophils % (Manual) 9.0 H Seg Neutrophils # Man 8.0 H Monocytes # (Manual) 1.1 H Eosinophils # (Manual) 1.4 H Basophils # (Manual) PT INR APTT Potassium 3.1 L Carbon Dioxide Glucose 106 H POC Glucose Total Creatine Kinase 844 H CK-MB (CK-2) 25.0 H CK-MB (CK-2) Rel Index Troponin T 0.755 H* Cholesterol LDL Cholesterol Direct HDL Cholesterol Urine WBC (Auto) 07/21/17 07/21/17 13:44 18:00 WBC RBC MCV MCH RDW Seg Neuts % (Manual) Lymphocytes % (Manual) Eosinophils % (Manual) Seg Neutrophils # Man Monocytes # (Manual) Eosinophils # (Manual) Basophils # (Manual) PT INR APTT Potassium Carbon Dioxide 20 L Glucose 116 H POC Glucose Total Creatine Kinase CK-MB (CK-2) CK-MB (CK-2) Rel Index Troponin T Cholesterol LDL Cholesterol Direct HDL Cholesterol Urine WBC (Auto) 34.0 H
--- NOTE | 2017-07-22 20:16 | Event Note ---
Date: 07/22/17 Patient reports chest pain and nausea after she ambulated in the hallway this afternoon. Chest pain resolved with rest. Given her symptoms, will schedule repeat LHC and possible PCI for tomorrow am. Discussed with the patient and she agrees to proceed.
[2017-07-22] MEDS: LOVENOX SUB-Q SCH (21:31)
[2017-07-23 05:53] LABS: Basophils # (Auto) 0.1 K/mm3 (0.0-0.1); Basophils % (Auto) 0.4 % (0.0-1.8); Eosinophils # (Auto) 1.3 K/mm3 (0.0-0.4); Eosinophils % (Auto) 7.8 % (0.0-4.3); Hematocrit 39.8 % (30.3-42.9); Hemoglobin 12.6 gm/dl (10.1-14.3); Lymphocytes # (Auto) 3.6 K/mm3 (1.2-5.4); Lymphocytes % (Auto) 22.2 % (13.4-35.0); Mean Corpuscular HGB Conc 32 % (30-34); Monocytes # (Auto) 0.7 K/mm3 (0.0-0.8); Monocytes % (Auto) 4.4 % (0.0-7.3); Platelet Count 291 K/mm3 (140-440); Red Blood Count 5.76 M/mm3 (3.65-5.03); Red Cell Distribution Width 15.9 % (13.2-15.2)
[2017-07-23 05:59] LABS: Mean Corpuscular Hemoglobin 22 pg (28-32); Mean Corpuscular Volume 69 fl (79-97)
[2017-07-23 06:06] LABS: INR 1.02 (0.87-1.13)
[2017-07-23 06:11] LABS: BUN/Creatinine Ratio 20; Blood Urea Nitrogen 14 mg/dL (7-17); Calcium 9.8 mg/dL (8.4-10.2); Hemolysis Index 30
[2017-07-23] MEDS: PEPCID PO SCH ×2 (06:23→11:17)
[2017-07-23] MEDS: ZOFRAN IV PRN (06:32)
[2017-07-23] MEDS: PLAVIX PO SCH (11:16)
[2017-07-23] MEDS: ECOTRIN PO SCH (11:17)
[2017-07-23] MEDS: LOPRESSOR PO SCH ×2 (11:17→22:25)
[2017-07-23] MEDS: K-DUR PO SCH ×2 (11:18→22:28)
--- NOTE | 2017-07-23 11:32 | Progress Note ---
Assessment and Plan Assessment: Inferior STEMI CAD s/p PCI of RCA with overlapping BMS (07/09), 80% mid-distal circ, 60-70% proximal-mid LAD Urinary tract infection-->started on PO levaquin Hypertension Hyperlipidemia Plan: Given persistent chest pain, will proceed with repeat left heart cath today. Further recommendations to follow. The patient has been seen in conjunction with Dr. Puga who agrees with the assessment and plan of care. Subjective Date of service: 07/23/17 Principal diagnosis: acute STEMI Interval history: The patient is resting in bed. She continues to c/o intermittent chest pain that is worse with activity. Awaiting repeat left heart cath this morning. Objective Last Vital Signs Temp 98.3 F 07/23/17 04:36 Pulse 67 07/23/17 11:17 Resp 21 07/23/17 04:36 BP 110/64 07/23/17 11:17 Pulse Ox 100 07/23/17 07:45 - Physical Examination General: Appears Well HEENT: Positive: PERRL Neck: Positive: neck supple Cardiac: Positive: Reg Rate and Rhythm, S1/S2 Lungs: Positive: clear to auscultation Neuro: Positive: Grossly Intact Abdomen: Positive: Soft Skin: Positive: Clear Incision: Cardiac Cath Site (right femoral cath site-no bleeding or hematoma) Extremities: Present: normal. Absent: edema - Labs and Meds Coagulation 07/23/17 Range/Units 04:54 PT 13.9 (12.2-14.9) Sec. INR 1.02 (0.87-1.13) CBC 07/23/17 Range/Units 04:54 WBC 16.3 H (4.5-11.0) K/mm3 RBC 5.76 H (3.65-5.03) M/mm3 Hgb 12.6 (10.1-14.3) gm/dl Hct 39.8 (30.3-42.9) % Plt Count 291 (140-440) K/mm3 Lymph # 3.6 (1.2-5.4) K/mm3 [place] # 0.7 (0.0-0.8) K/mm3 Eos # 1.3 H (0.0-0.4) K/mm3 Baso # 0.1 (0.0-0.1) K/mm3 Comprehensive Metabolic Panel 01/03/18 Range/Units 04:54 Sodium 137 (137-145) mmol/L Potassium 4.1 (3.6-5.0) mmol/L Chloride 101.8 (98-107) mmol/L Carbon Dioxide 20 L (22-30) mmol/L BUN 14 (7-17) mg/dL Creatinine 0.7 (0.7-1.2) mg/dL Glucose 107 H (65-100) mg/dL Calcium 9.8 (8.4-10.2) mg/dL - Imaging and Cardiology Echo: report reviewed (EF 50-55%) - Telemetry EKG Rhythm: Sinus Rhythm
--- NOTE | 2017-07-23 14:07 | Progress Note ---
Subjective Date of service: 07/23/17 Principal diagnosis: STEMI; Tobacco Use Disorder; CAD Interval history: Patient is seen today for: Seen and examined at bedside; 24hour events reviewed; nursing and respiratory care staff consulted; no adverse overnight events reported to me; Objective Vital Signs - 12hr 07/23/17 07/23/17 07/23/17 04:36 07:45 11:17 Temperature 98.3 F Pulse Rate 63 67 Respiratory 21 Rate Blood Pressure 108/72 110/64 O2 Sat by Pulse 100 Oximetry Constitutional: no acute distress, alert Eyes: non-icteric Neck: supple, no lymphadenopathy Ascultation: Bilateral: diminished breath sounds Cardiovascular: regular rate and rhythm Gastrointestinal: normoactive bowel sounds, soft, non-tender Extremities: no cyanosis, no edema Neurologic: normal mental status, non-focal exam, pupils equal and round, CN II- XII normal Psychiatric: mood appropriate CBC and BMP: 07/23/17 04:54 07/23/17 04:54 ABG, PT/INR, D-dimer: PT/INR, D-dimer PT 13.9 Sec. (12.2-14.9) 07/23/17 04:54 INR 1.02 (0.87-1.13) 07/23/17 04:54 Abnormal lab findings: Abnormal Labs 07/19/17 07/19/17 07/19/17 00:23 00:40 00:40 WBC 30.2 H RBC 5.27 H MCV 69 L MCH 22 L RDW 16.2 H Eos % (Auto) Eos # Seg Neuts % (Manual) 85.5 H Lymphocytes % (Manual) 9.0 L Eosinophils % (Manual) Seg Neutrophils # Seg Neutrophils # Man 25.8 H Monocytes # (Manual) Eosinophils # (Manual) 0.8 H Basophils # (Manual) 0.2 H PT 17.3 H INR 1.34 H APTT > 240.0 H* Activated Clotting Time 241 H Potassium Carbon Dioxide Glucose POC Glucose Total Creatine Kinase CK-MB (CK-2) CK-MB (CK-2) Rel Index Troponin T Cholesterol LDL Cholesterol Direct HDL Cholesterol Urine WBC (Auto) 07/19/17 07/19/17 07/19/17 00:40 00:55 02:09 WBC RBC MCV MCH RDW Eos % (Auto) Eos # Seg Neuts % (Manual) Lymphocytes % (Manual) Eosinophils % (Manual) Seg Neutrophils # Seg Neutrophils # Man Monocytes # (Manual) Eosinophils # (Manual) Basophils # (Manual) PT INR APTT Activated Clotting Time 241 H 191 H Potassium Carbon Dioxide Glucose POC Glucose Total Creatine Kinase CK-MB (CK-2) 9.5 H CK-MB (CK-2) Rel Index 7.1 H Troponin T 0.045 H Cholesterol 235 H LDL Cholesterol Direct 176 H HDL Cholesterol 34 L Urine WBC (Auto) 07/19/17 07/19/17 07/19/17 02:45 04:57 05:02 WBC RBC MCV MCH RDW Eos % (Auto) Eos # Seg Neuts % (Manual) Lymphocytes % (Manual) Eosinophils % (Manual) Seg Neutrophils # Seg Neutrophils # Man Monocytes # (Manual) Eosinophils # (Manual) Basophils # (Manual) PT INR APTT Activated Clotting Time Potassium Carbon Dioxide 19 L Glucose POC Glucose 115 H Total Creatine Kinase 741 H CK-MB (CK-2) 73.0 H CK-MB (CK-2) Rel Index 9.8 H Troponin T 0.854 H* D Cholesterol LDL Cholesterol Direct HDL Cholesterol Urine WBC (Auto) 07/20/17 07/20/17 07/20/17 05:37 05:37 05:37 WBC 15.0 H RBC 5.17 H MCV 69 L MCH 22 L RDW 16.1 H Eos % (Auto) Eos # Seg Neuts % (Manual) Lymphocytes % (Manual) Eosinophils % (Manual) 9.0 H Seg Neutrophils # Seg Neutrophils # Man 8.0 H Monocytes # (Manual) 1.1 H Eosinophils # (Manual) 1.4 H Basophils # (Manual) PT INR APTT Activated Clotting Time Potassium 3.1 L Carbon Dioxide Glucose 106 H POC Glucose Total Creatine Kinase 844 H CK-MB (CK-2) 25.0 H CK-MB (CK-2) Rel Index Troponin T 0.755 H* Cholesterol LDL Cholesterol Direct HDL Cholesterol Urine WBC (Auto) 07/21/17 07/21/17 07/23/17 13:44 18:00 04:54 WBC 16.3 H RBC 5.76 H MCV 69 L MCH 22 L RDW 15.9 H Eos % (Auto) 7.8 H Eos # 1.3 H Seg Neuts % (Manual) Lymphocytes % (Manual) Eosinophils % (Manual) Seg Neutrophils # 10.6 H Seg Neutrophils # Man Monocytes # (Manual) Eosinophils # (Manual) Basophils # (Manual) PT INR APTT Activated Clotting Time Potassium Carbon Dioxide 20 L Glucose 116 H POC Glucose Total Creatine Kinase CK-MB (CK-2) CK-MB (CK-2) Rel Index Troponin T Cholesterol LDL Cholesterol Direct HDL Cholesterol Urine WBC (Auto) 34.0 H 07/23/17 04:54 WBC RBC MCV MCH RDW Eos % (Auto) Eos # Seg Neuts % (Manual) Lymphocytes % (Manual) Eosinophils % (Manual) Seg Neutrophils # Seg Neutrophils # Man Monocytes # (Manual) Eosinophils # (Manual) Basophils # (Manual) PT INR APTT Activated Clotting Time Potassium Carbon Dioxide 20 L Glucose 107 H POC Glucose Total Creatine Kinase CK-MB (CK-2) CK-MB (CK-2) Rel Index Troponin T Cholesterol LDL Cholesterol Direct HDL Cholesterol Urine WBC (Auto)
[2017-07-23] MEDS ORDERED: NACL 0.9% 500 ML 500 ML ONE (16:37)
[2017-07-23] MEDS ORDERED: CALAN ONE (16:51)
[2017-07-23] MEDS ORDERED: XYLOCAINE 2% INFILTRATI ONE (16:52)
[2017-07-23] MEDS ORDERED: NITROGLYCERIN SYRINGE 0 ML ONE (16:52)
[2017-07-23] MEDS ORDERED: HEPARIN/NS 5000 UNIT/500ML(CATH LAB) 1,000 ML IR ONE (17:07)
[2017-07-23] MEDS ORDERED: VERSED ONE (17:07)
[2017-07-23] MEDS: SUBLIMAZE ONE ×2 (17:20→17:38)
[2017-07-23] MEDS: HEPARIN 10,000 UNITS/10 ML ONE ×2 (17:23→18:07)
[2017-07-23] MEDS ORDERED: ATROPINE 0.1% (CARDIAC) ONE (17:38)
[2017-07-23] MEDS: LEVAQUIN PO SCH (18:18)
[2017-07-23] MEDS ORDERED: ULTRAM PO PRN (18:22)
[2017-07-23] MEDS ORDERED: NORCO 5/325 PO PRN (18:22)
[2017-07-23] MEDS ORDERED: PLAVIX ONE (18:24)
[2017-07-23] MEDS ORDERED: NACL 0.9% 1000 ML 1,000 ML IV SCH (19:00)
--- NOTE | 2017-07-23 20:54 | Cardiac Catherization Report ---
CLINICAL INFORMATION: The patient is a 57-year-old female who used to live in [place] and moved to this area recently, presented with acute inferior wall myocardial infarction, hypotension and AV block requiring emergency catheterization and intervention of the RCA along with temporary pacemaker, subsequently recovered,performed few days ago.. When treating acute STEMI( with occluded RCA), she was noted to have significant circumflex lesions. Hence scheduled for cardiac catheterization and intervention of the circumflex artery. The patient is aware of the procedure, potential complications and alternatives of therapy available. DESCRIPTION OF PROCEDURE: The patient was brought to the catheterization laboratory in a fasting condition. The right wrist area and forearm thoroughly cleansed with Betadine solution and sterile drapes were applied. Local anesthesia was achieved using 2% Xylocaine. Right radial artery puncture was made using 21-gauge arterial puncture needle. Subsequently, a 5 [place] slender sheath was introduced. Using multipurpose catheter, angiograms of the right coronary artery and left coronary artery were obtained. Also left ventriculogram was performed in [place] projection. Following findings were noted. HEMODYNAMICS: 1. Opening aortic pressure 111/63, left ventricular pressure 122/23. No gradient across the aortic valve. Estimated ejection fraction 55%. 2. Left ventriculogram done in [place] projection showed normal sized left ventricle, this was performed with hand injection and ejection fraction was felt to be 55%. Mitral regurgitation could not be evaluated. 3. Right coronary artery dominant vessel. Shows patent stents in the proximal and mid parts. Distal vessel shows severe diffuse disease with patent LV branches and PDA. However, the patient has diffuse disease distally. Has KYE 3 flow in the RCA. 4. Left coronary system shows left main without significant disease. LAD shows long mid lesion approaching 60% or so. Mid and distal vessel without significant disease. Circumflex artery showed proximal lesion which is eccentric 80% or more and similarly, there is severe distal disease in the circumflex before the distal marginal branch. This is almost 90% in the severity. Considering the above findings, it was decided to proceed with intervention of the circumflex lesions. Coronary intervention of the circumflex artery, which included a proximal circumflex lesion in addition to distal circumflex lesion with the guidance of intravascular ultrasound. The patient has right radial sheath in place. The patient received IV heparin as anticoagulant and EBU 3.5 guiding catheter was engaged in the left coronary artery. Lesions were noted as above. A 0.014 inch [place] XT guidewire was advanced into the distal marginal branch without difficulty. Considering the severity of the lesion, both the lesions proximal and distal lesions were dilated with 2.5 x 15 mm balloon; however, required multiple dilations in the distal area, which appears to be very sclerotic and difficult to dilate; however, with multiple dilations up to 13 atmospheres, there is good inflation of the balloon. Similarly proximal lesion was dilated with improvement in the lesion. Subsequently, intravascular ultrasound was performed. This showed dimension of the distal lesion was 1.8 mm with area of 2.9 squared mm. Proximal lesion was found to be 1.9 mm in diameter with area being 3.0 square mm. Distal lesion was intervened with 2.5 x 18 mm Resolute stent, dilated up to 13 atmospheres. Angiographically very good result was obtained. Repeat intravascular ultrasound showed diameter of the lesion was 2.4 mm with area of 4.3 squared mm. Proximal lesion showed diameter to include 2.7 mm with area being 5.6 squared mm. However, considering significant distal disease, no further dilation of the distal lesion was performed. KYE 3 flow was noted pre and post-procedure. No proximal or distal dissection or embolization noted. The patient tolerated the procedure well, rhythm being sinus and blood pressure has been stable. FINAL IMPRESSION: Uncomplicated drug-eluting stent placement Resolute 2.75 x 12 mm in the proximal circumflex and 2.5 x 18 mm Resolute stent in the distal circumflex with good result. The patient was given heparin as anticoagulant in addition to patient being already on Plavix. The patient will be monitored overnight in telemetry. Findings were explained to the patient. JOB# [id number] JARED/DIANA THAKUR
[2017-07-23] MEDS: LOVENOX SUB-Q SCH (22:23)
[2017-07-24 08:52] VITALS: BP 114/63
[2017-07-24] MEDS: PLAVIX PO SCH (11:24)
[2017-07-24] MEDS: K-DUR PO SCH (11:24)
[2017-07-24] MEDS: LEVAQUIN PO SCH (11:24)
[2017-07-24] MEDS: LOPRESSOR PO SCH (11:24)
[2017-07-24] MEDS: PEPCID PO SCH (11:24)
[2017-07-24] MEDS: ECOTRIN PO SCH (11:25)
--- NOTE | 2017-07-24 11:36 | Progress Note ---
Assessment and Plan Assessment: Inferior STEMI CAD s/p PCI of RCA with overlapping BMS (07/19), 80% mid-distal circ, 60-70% proximal-mid LAD S/p PCI of proximal and distal LCX (07/23) with JONAS Urinary tract infection-->started on PO levaquin Hypertension Hyperlipidemia Plan: Stable cardiac status. Chest pain free s/p PCI of LCX yesterday. Will d/c home this afternoon. Patient to follow up with cardiology at [place]. The patient has been seen in conjunction with Dr. Puga who agrees with the assessment and plan of care. Subjective Date of service: 07/24/17 Principal diagnosis: STEMI; Tobacco Use Disorder; CAD Interval history: The patient is resting in bed. S/p PCI of proximal and distal circumflex. Denies chest pain or shortness of breath. Sinus rhythm on the monitor. Objective Last Vital Signs Temp 98.4 F 07/24/17 07:17 Pulse 60 07/24/17 07:17 Resp 16 07/24/17 07:17 BP 114/63 07/24/17 07:17 Pulse Ox 98 07/24/17 07:17 - Physical Examination General: Appears Well HEENT: Positive: PERRL Neck: Positive: neck supple Cardiac: Positive: Reg Rate and Rhythm, S1/S2 Lungs: Positive: clear to auscultation Neuro: Positive: Grossly Intact Abdomen: Positive: Soft Skin: Positive: Clear Incision: Cardiac Cath Site (right femoral cath site-no bleeding or hematoma) Extremities: Present: normal. Absent: edema - Imaging and Cardiology Echo: report reviewed (EF 50-55%) - Telemetry EKG Rhythm: Sinus Rhythm
--- NOTE | 2017-07-24 11:36 | Discharge Summary ---
Providers - Providers Date of Admission: 07/19/17 01:04 Date of discharge: 07/24/17 Attending physician: ARUN BERNAL 07/23/17 18:22 Consult to Cardiac Rehabilitation [CONS] Routine Reason For Exam: Cardiac Rehab Evaluation 07/19/17 Consult to Cardiac Rehabilitation [CONS] Routine Reason For Exam: post pci 07/19/17 18:50 Consult to Physician [CONS] Routine Consulting Provider: CRESENCIO DE LEON Reason For Exam: STEMI Place consult to:: Dr. Bedoya Notified:: Dr. Bedoya Was contact made?: Yes If yes, spoke with:: Dr. Bedoya Primary care physician: ELI MALLORY Hospitalization Reason for admission: STEMI Condition: Stable Pertinent studies: cardiac cath and PCI of RCA (07/19/17) cardiac cath and PCI of LCX (07/23/2017) echocardiogram Hospital course: The patient is a 57 year old female with a history of hypertension, hyperlipidemia who presented on 07/19 with one hour of chest pain and was found to have inferior ST elevation on EKG. She was hypotensive and bradycardic on presentation and dopamine was started in the ER. STEMI protocol was initiated and the patient was taken to the catheter builder by Dr. Arun Bernal on an emergent basis. Cath revealed acute atherothrombotic occlusion of the proximal RCA complicated by hypotension and complete heart block. She underwent successful PCI of the proximal and mid RCA with overlapping bare metal stents as well as placement of a temporary transvenous pacemaker via the right groin. Cath also revealed 80% stenosis in the mid and distal LCX and 60-70% proximal mid LAD. She was admitted to ICU and temporary pacemaker was removed later in the afternoon on 07/19 and the patient was transferred to telemetry. Echo showed EF 50-55%. She was monitored on telemetry over the weekend and developed chest pain with ambulation on 07/22/17. She was also discovered to have a urinary tract infection and was started on PO levaquin. On 07/23/17 she underwent repeat LHC and PCI of the proximal and distal circumflex with drug eluting stents. She was monitored on telemetry overnight and remained chest pain free and hemodynamically stable. She will be discharged home this afternoon in stable condition. She is instructed to follow up with a furnace keeper at [facility] next week. Disposition: [id number] TO HOME OR SELFCARE - Discharge Diagnoses (1) STEMI (ST elevation myocardial infarction) Status: Acute (2) S/P PTCA (percutaneous transluminal coronary angioplasty) Status: Acute (3) CAD (coronary artery disease) Status: Acute (4) Hypertension Status: Chronic (5) Hyperlipidemia Status: Chronic (6) Urinary tract infection Status: Acute Core Measure Documentation - Palliative Care Palliative Care/ Comfort Measures: Not Applicable - Core Measures Any of the following diagnoses?: acute MS - Acute MS Discharge Requirements Aspirin at discharge: Yes GIOVANNI/ARB for LVSD if EF <40%: Yes Beta carlotta at discharge: Yes Statin for LDL = or >100 mg/dl on DC: Yes Exam - Constitutional Vitals: Temp Pulse Resp BP Pulse Ox 98.4 F 60 16 114/63 98 07/24/17 07:17 07/24/17 07:17 07/24/17 07:17 07/24/17 07:17 07/24/17 07:17 General appearance: Present: no acute distress - EENT Eyes: Present: PERRL ENT: hearing intact - Neck Neck: Present: supple, normal ROM - Respiratory Respiratory effort: normal Respiratory: bilateral: CTA - Cardiovascular Rhythm: regular Heart Sounds: Present: S1 & S2 - Extremities Extremities: no ischemia, pulses intact Peripheral Pulses: within normal limits - Abdominal General gastrointestinal: Present: soft, non-tender - Integumentary Integumentary: Present: clear, warm, dry - Musculoskeletal Musculoskeletal: strength equal bilaterally - Psychiatric Psychiatric: appropriate mood/affect - Neurologic Neurologic: CNII-XII intact Plan Activity: advance as tolerated Weight Bearing Status: Weight Bear as Tolerated Diet: low fat, low cholesterol Wound: keep clean and dry Follow up with: ELI MALLORY MD [Primary Care Provider] - 7 Days ARUN BERNAL MD [Staff Physician] - 7 Days (Follow up with [facility]) Prescriptions: Aspirin EC [Aspirin Enteric Coated TAB] 325 mg PO QDAY #30 tablet AtorvaSTATin [Lipitor] 80 mg PO QHS #30 tablet Clopidogrel [Plavix] 75 mg PO QDAY #30 tablet Levofloxacin [Levaquin TAB] 500 mg PO Q24HR #5 tablet Metoprolol [Lopressor TAB] 12.5 mg PO BID #30 tablet Nitroglycerin [Nitrostat] 0.4 mg SL .Q5MIN PRN #100 tablet PRN Reason: Chest Pain
== END 2017-07-24 13:45 | disposition home or self-care (01) | DRG 247 ==
LOC: ED 23:45 → CC1 07-19 01:04 → 4A 07-20 11:29
PROVIDERS: ADMIT Internal Medicine; ATTEND Internal Medicine
PROC: 02703EZ Dilation of Coronary Artery, One Artery with Two Intraluminal Devices, Percutaneous Approach (ICD-10-PCS; 2017-07-19)
PROC: 4A023N7 Measurement of Cardiac Sampling and Pressure, Left Heart, Percutaneous Approach (ICD-10-PCS; 2017-07-19)
PROC: B2111ZZ Fluoroscopy of Multiple Coronary Arteries using Low Osmolar Contrast (ICD-10-PCS; 2017-07-19)
PROC: B2151ZZ Fluoroscopy of Left Heart using Low Osmolar Contrast (ICD-10-PCS; 2017-07-19)
PROC: 5A1223Z Performance of Cardiac Pacing, Continuous (ICD-10-PCS; 2017-07-19)
PROC: B241ZZ3 Ultrasonography of Multiple Coronary Arteries, Intravascular (ICD-10-PCS; 2017-07-19)
PROC: 027035Z Dilation of Coronary Artery, One Artery with Two Drug-eluting Intraluminal Devices, Percutaneous Approach (ICD-10-PCS; principal; 2017-07-23)
PROC: B241ZZ3 Ultrasonography of Multiple Coronary Arteries, Intravascular (ICD-10-PCS; 2017-07-23)
DX: I21.19 ST elevation (STEMI) myocardial infarction involving other coronary artery of inferior wall (principal); N39.0 Urinary tract infection, site not specified; I25.10 Atherosclerotic heart disease of native coronary artery without angina pectoris; I10 Essential (primary) hypertension; D72.829 Elevated white blood cell count, unspecified; E78.5 Hyperlipidemia, unspecified; I95.9 Hypotension, unspecified; Z87.891 Personal history of nicotine dependence; Z85.3 Personal history of malignant neoplasm of breast
CPT/HCPCS: 33210; 36415; 71010; 80048; 80061; 81001; 82550; 82553; 82962; 84484; 85007; 85025; 85347; 85610; 85730; 86850; 86900; 86901; 87086; 92928; 92941; 92978; 93005; 93010; 93306; 93458; 96374; 96375; 99285; A9270-GY; C1725; C1753; C1769; C1874; C1876; C1887; C1894; C9600; J0461; J1265; J1644; J1650; J2250; J2270; J2405; J3010; J3246; J7030; J7040; Q9967